=== PATIENT | female | born 1975 | race Two or more races ===

== ENCOUNTER 2021-05-10 10:15 | Inpatient (IN) | payer OTHER ==
[~2021-05-10] VITALS: Ht 157.5 cm; Wt 86.2 kg
[2021-05-13] MEDS ORDERED: NORTREL 1-35 21 EAC1 (08:39)
[2021-05-13] MEDS ORDERED: OMEPRAZOLE20 MG (08:39)
[2021-05-13] MEDS ORDERED: TAMSULOSIN HCL0.4 MG (08:40)
[2021-05-13] MEDS ORDERED: FLUCONAZOLE150 MG (08:40)
[2021-05-15] MEDS ORDERED: POLY119PG PO (07:03)
[2021-05-15] MEDS ORDERED: SIMETHICONE125 M1 PO (07:03)
[2021-05-15] MEDS ORDERED: IBUPROFEN800 MG PO (07:03)
[2021-05-15] MEDS ORDERED: FAMOTIDINE20 MG PO (07:03)
[2021-05-15] MEDS ORDERED: NEURONTIN600 MG PO (07:03)
== END 2021-05-15 10:32 | disposition home or self-care (01) | DRG 743 ==
LOC: O/R 05-13 05:53 → OB/GYN 05-13 05:53 → SURH 05-13 07:00 → OB/GYN 05-13 11:12
PROVIDERS: ADMIT Obstetrics & Gynecology; ATTEND Obstetrics & Gynecology
PROC: 0UB70ZZ Excision of Bilateral Fallopian Tubes, Open Approach (ICD-10-PCS; 2021-05-13)
PROC: 0UT90ZZ Resection of Uterus, Open Approach (ICD-10-PCS; principal; 2021-05-13 07:00)
DX: N72 Inflammatory disease of cervix uteri (principal); D25.1 Intramural leiomyoma of uterus; N83.8 Other noninflammatory disorders of ovary, fallopian tube and broad ligament; N93.9 Abnormal uterine and vaginal bleeding, unspecified; D50.0 Iron deficiency anemia secondary to blood loss (chronic)